=== PATIENT | female | born 1990 | race Caucasian/White ===

== ENCOUNTER 2019-07-31 14:03 | Outpatient (CLI) | payer MEDICAID ==
[~2019-07-31] VITALS: Ht 149.9 cm; Wt 66.8 kg
--- NOTE | 2019-07-31 14:00 | NUR ---
1400-G5L4 37.0 GBS (-) REPEAT C/S PAITIENT OF DR. LOPEZ AMBULATORY TO LR 3 WITH COMPLAINTS OF CONTRACTIONS STARTING AT 1100. DENIES LOF OR VB, REPORTS GOOD FM. PLACED ON EFM, VSS, SVE 0/-3 BY ABI,RN AND THIS RN. PATIENT GDM, REPORTS BG 113 AT 1100. ASSESSMENT COMPLETE. MD UPDATED, SEE PHYSICIAN NOTIFICATION.
[~2019-07-31 14:03] MED LIST: CEPHALEXIN500 M1 PO; GLUCOPHAGE500 MG/TAB PO; GLUMETZA1000 MG PO; IBU600 MG PO; LEVEMIR100 U/ML SQ; MACROBID 1100 MG/CAP PO; NOVOLOG 100U100 U/M1 SQ; PERCOCET 325 MG1 TA2 PO; PRENATA1 CTB PO; PRENATAL TABLET PO; PRENATAL VITAMI1 TAB PO; PRENATAL1 TA7 PO
[2019-07-31 14:07] VITALS: BP 120/74; PULSE 99; TEMP 97.7
[2019-07-31] MEDS ORDERED: LANTUS100 U/ML SQ (14:17)
[2019-07-31] MEDS ORDERED: NOVOLOG 100U100 U/M1 SQ (14:18)
[2019-07-31 14:30] VITALS: BP 120/74; PULSE 99; TEMP 97.7
[2019-07-31 14:57] LABS: HEMOGLOBIN 11.2 g/dl (12.5-16.0); MEAN CELL VOLUME 75 fl (80.0-100.0); MEAN CORPUSCULAR HEMOGLOBIN 23 pg (27.0-31.0); MEAN CORPUSCULAR HGB CONC 31 g/dl (33.0-37.0); MEAN PLATELET VOLUME 10.3 fl (7.4-10.4); PLATELET COUNT 307 K/mm3 (130-400); RED BLOOD COUNT 4.83 M/mm3 (4.10-5.30); REDCELL DISTRIBUTION WIDTH-CV 15.2 % (11.5-14.5)
[2019-07-31 15:00] VITALS: PULSE 130
[2019-07-31 15:03] LABS: HEMATOCRIT 36.2 % (37.0-47.0)
[2019-07-31 15:04] LABS: COLLECTION METHOD CLEAN CATCH
[2019-07-31 15:20] LABS: MUCOUS Present /lpf; PH 6 (5-8); SQUAMOUS EPITHELIAL 0-2 /hpf; URINE APPEARANCE Hazy; URINE BACTERIA Rare /hpf; URINE BILIRUBIN Negative (NEGATIVE); URINE BLOOD Negative (NEGATIVE); URINE COLOR Yellow; URINE GLUCOSE Negative (NEGATIVE); URINE KETONE Negative (NEGATIVE); URINE LEUKOCYTE ESTERASE Negative (NEGATIVE); URINE NITRATE Negative (NEGATIVE); URINE PROTEIN(semi-quant) Negative (NEGATIVE); URINE RBC 0-2 /hpf; URINE UROBILINOGEN Negative (NEGATIVE)
--- NOTE | 2019-07-31 15:38 | NUR ---
1538- UPDATED ON LAB RESULTS, SEE PHYSICIAN NOTIFICATION. ORDERS RECIEVED TO DISHCARGE.
[2019-07-31 15:56] VITALS: BP 131/83; PULSE 88
--- NOTE | 2019-07-31 16:12 | NUR ---
1612-IM OLIVAEIN GIVEN, SEE EMAR. DISCHARGE INSTURCTIONS REVIEWED WITH PATIENT. 1615-AMBULATORY OFF UNIT WITH SPOUSE.
== END 2019-07-31 16:15 | disposition home or self-care (01) ==
LOC: LDRO 14:03 → LDR 14:04 → LDRO 14:04 → LDR 16:15
PROVIDERS: Obstetrics & Gynecology
DX: O62.9 Abnormality of forces of labor, unspecified (principal); Z3A.37 37 weeks gestation of pregnancy
CPT/HCPCS: OP; J0696

== ENCOUNTER 2019-08-07 13:16 | Outpatient (CLI) | payer MEDICAID ==
[~2019-08-07] VITALS: Ht 149.9 cm; Wt 68.2 kg
[~2019-08-07 13:16] MED LIST changes: +LANTUS100 U/ML SQ
[2019-08-07 13:17] VITALS: BP 129/81; PULSE 112; TEMP 97.5
--- NOTE | 2019-08-07 15:50 | NUR ---
Patient ambulates to LR4 with spouse, change into gown, FHR/TOCO monitors placed. Patient states "she has been having some bloody show today and then around 11:00am started medina and have gotten stroner and having pelvic pain" Plan of care discussed. 1555: SVE per Tori RN -closed/-3 Patient updated on plan of care. Toir RN call physician and notified.
[2019-08-07 16:00] VITALS: BP 136/78; PULSE 110; TEMP 97.5
[2019-08-07 16:30] VITALS: BP 114/70; PULSE 108
--- NOTE | 2019-08-07 16:36 | NUR ---
PATIENT FEELING CONSTAANT PAIN IN LOWER ABDOMEN. ROUND LIGAMENT PAIN DISCUSSED
[2019-08-07 16:45] VITALS: BP 104/51; PULSE 104
== END 2019-08-07 16:50 | disposition home or self-care (01) ==
LOC: LDRO 13:16 → LDR 16:02 → LDRO 16:50
DX: O62.9 Abnormality of forces of labor, unspecified (principal); Z3A.38 38 weeks gestation of pregnancy
CPT/HCPCS: OP

== ENCOUNTER 2019-08-16 05:22 | Inpatient (IN) | payer MEDICAID ==
[~2019-08-16] VITALS: Ht 149.9 cm; Wt 72.3 kg
[2019-08-16] VITALS (18 sets, daily range): BP systolic 95–132; BP diastolic 45–82; PULSE 66–100; TEMP 97.2–98.4
--- NOTE | 2019-08-16 05:15 | NUR ---
Here with spouse for repeat delivery. NPO since midnite. Admission proceedures started. EFM on. 529 iv start.Consents signed. Asked to collect UA when up to BR abd shaved at home
[2019-08-16 05:53] LABS: BASO # 0.1 (0.0-0.2); BASO % 0.5 % (0.0-2.0); EOS # 0.3 (0.0-0.7); EOS % 2.3 % (0-4.0); GRAN # 6.6 (1.4-6.5); GRAN % 60.9 % (42.2-75.2); LYMPH # 2.8 (1.2-3.4); LYMPH % 25.8 % (20.0-51.0); MEAN CELL VOLUME 75 fl (80.0-100.0); MEAN CORPUSCULAR HEMOGLOBIN 23 pg (27.0-31.0); MEAN CORPUSCULAR HGB CONC 30 g/dl (33.0-37.0); MEAN PLATELET VOLUME 11.4 fl (7.4-10.4); MONO # 0.9 (0.1-0.6); MONO % 8.6 % (1.7-9.3); PLATELET COUNT 354 K/mm3 (130-400); RED BLOOD COUNT 4.85 M/mm3 (4.10-5.30); REDCELL DISTRIBUTION WIDTH-CV 15.7 % (11.5-14.5)
[2019-08-16 05:55] LABS: HEMATOCRIT 36.3 % (37.0-47.0)
[2019-08-16 07:36] LABS: COLLECTION METHOD CLEAN CATCH
[2019-08-16 07:49] LABS: MUCOUS Present /lpf; PH 6 (5-8); URINE APPEARANCE Hazy; URINE BACTERIA Rare /hpf; URINE BILIRUBIN Negative (NEGATIVE); URINE BLOOD Negative (NEGATIVE); URINE COLOR Yellow; URINE GLUCOSE Negative (NEGATIVE); URINE KETONE Negative (NEGATIVE); URINE LEUKOCYTE ESTERASE Trace (NEGATIVE); URINE NITRATE Negative (NEGATIVE); URINE PROTEIN(semi-quant) Negative (NEGATIVE); URINE RBC 0-2 /hpf; URINE UROBILINOGEN Negative (NEGATIVE)
--- NOTE | 2019-08-16 09:45 | NUR ---
Assumed care of patient. Rests in bed, alert. Denies any pain at this time. Let patient know that if she needs pain medication to let me know.
--- NOTE | 2019-08-16 11:35 | NUR ---
Rests in bed, alert. pump explained to patient.
--- NOTE | 2019-08-16 13:20 | NUR ---
Rests in bed, alert. Rocephin 1 gram iv give as ordered.
--- NOTE | 2019-08-16 14:00 | NUR ---
1420 Ibuprofen 600 mg given as ordered. Ambulates to the bathroom. Deedee-care explained and done. Diallo catheter out. Ambulates to the nursery to see baby. Tolerates well.
[2019-08-17 01:00] VITALS: BP 137/80; PULSE 74; TEMP 97.9
[2019-08-17 05:00] VITALS: BP 131/78; PULSE 80; TEMP 97.9
[2019-08-17 07:39] LABS: HEMATOCRIT 30.9 % (37.0-47.0); HEMOGLOBIN 9.2 g/dl (12.5-16.0)
[2019-08-17 07:50] VITALS: BP 100/68; PULSE 80; TEMP 97.3
[2019-08-17 12:00] VITALS: BP 105/70; PULSE 73; TEMP 98
[2019-08-17 16:29] VITALS: BP 115/77; PULSE 83; TEMP 98.3
[2019-08-17 20:00] VITALS: BP 113/74; PULSE 92; TEMP 98.3
[2019-08-18 07:52] VITALS: BP 124/68; PULSE 76; TEMP 98.1
[2019-08-18] MEDS ORDERED: PERCOCET 325 MG1 TA2 PO (08:28)
[2019-08-18] MEDS ORDERED: IBU600 MG PO (08:28)
[2019-08-18 10:37] LABS: COLLECTION METHOD CLEAN CATCH
[2019-08-18 10:45] LABS: MUCOUS Present /lpf; PH 5 (5-8); URINE APPEARANCE Hazy; URINE BACTERIA None Seen /hpf; URINE BILIRUBIN Negative (NEGATIVE); URINE BLOOD 3+ (NEGATIVE); URINE COLOR Amber; URINE GLUCOSE Negative (NEGATIVE); URINE KETONE Negative (NEGATIVE); URINE LEUKOCYTE ESTERASE Negative (NEGATIVE); URINE NITRATE Negative (NEGATIVE); URINE PROTEIN(semi-quant) 1+ (NEGATIVE); URINE RBC >50 /hpf; URINE UROBILINOGEN Negative (NEGATIVE)
== END 2019-08-18 12:00 | disposition home or self-care (01) | DRG 787 ==
LOC: OB 05:22 → LDR 09:18 → OB 08-18 12:00
PROVIDERS: ADMIT Obstetrics & Gynecology
PROC: 10D00Z1 Extraction of Products of Conception, Low, Open Approach (ICD-10-PCS; principal; 2019-08-16)
DX: O24.425 Gestational diabetes mellitus in childbirth, controlled by oral hypoglycemic drugs (principal); O23.43 Unspecified infection of urinary tract in pregnancy, third trimester; O40.3XX0 Polyhydramnios, third trimester, not applicable or unspecified; O34.211 Maternal care for low transverse scar from previous cesarean delivery; N73.6 Female pelvic peritoneal adhesions (postinfective); O99.89 Other specified diseases and conditions complicating pregnancy, childbirth and the puerperium; O69.1XX0 Labor and delivery complicated by cord around neck, with compression, not applicable or unspecified; Z3A.39 39 weeks gestation of pregnancy; Z37.0 Single live birth
CPT/HCPCS: J0690; J0696; J1885; J2370; J2405; J2590; J3010; J7030; J7120

== ENCOUNTER → 2022-06-19 | Outpatient (CLI) | payer MEDICAID | LOC: DIA.ED 06-10 09:23 | DX: O24.419 Gestational diabetes mellitus in pregnancy, unspecified control (principal) | CPT/HCPCS: G0108 ==

== ENCOUNTER → 2022-06-26 | Outpatient (CLI) | payer MEDICAID | LOC: DIA.ED 06:10 | DX: O24.419 Gestational diabetes mellitus in pregnancy, unspecified control (principal) ==